=== PATIENT | male | born 1980 | race Caucasian/White ===

== ENCOUNTER 2016-10-19 15:30 | Inpatient (IN) ==
--- NOTE | 2016-10-19 15:49 | Emergency Department Note ---
Disposition Clinical Impression: Acute psychosis Disposition: Still a Patient Condition: Fair Referrals: NONE,PCP [Primary Care Provider] - Forms: ED Satisfaction Letter Psych HPI - General Chief Complaint: ED Psychiatric Symptoms Stated Complaint: mental eval Time Seen by Provider: 10/19/16 15:43 Source: patient, EMS Mode of arrival: ambulatory Limitations: no limitations Nursing Notes Reviewed: Yes Vital Signs Reviewed: Yes - History of Present Illness HPI Narrative: 35-year-old male complaining of agitation hallucinations, patient was agitated at his sister's house, she called the police because she was concerned that he was hallucinating, he stated that he was seing numbers and patterns that were customer solutions representative of his personal information code like 1's and repeated information on his phone and that someone had typed a bizarre phrase "nananana" and this phrase deleted everything on his phone. He denies suicidal or homicidal ideation. He states that he has used methamphetamines in the last couple of days, he has been abstinent from heroin for several months, also smokes occasional marijuana. 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 Duration: intermittent History of similar episodes: Yes Improves with: none Worsens with: none Context: recent drug abuse (Meth 3 days ago) Alleged intoxication: Yes Associated symptoms: Denies: confusion, headache, nausea, vomiting - Related Data Previous Rx's Medication Instructions Recorded Nystatin SUSP [Mycostatin 5 ml PO QID 7 Days 06/07/15 Suspension] predniSONE [Prednisone] 40 mg PO DAILY #10 tablet 07/14/15 Naproxen [Naprosyn] 500 mg PO BID PRN #20 tablet 09/13/16 Allergies Allergy/AdvReac Type Severity Reaction Status Date / Time No Known Allergies Allergy Verified 09/13/16 13:49 All systems ED: reviewed and negative except as stated. Review of Systems: As Per HPI Constitutional: Denies: fever, chills Eyes: Denies: eye pain ENT ED: Denies: ear pain Cardiovascular: Denies: chest pain Respiratory: Denies: hemoptysis Gastrointestinal: Denies: hematemesis Neurological: Denies: headache Psychiatric: Reports: as per HPI, visual hallucinations. Denies: suicidal thoughts, homicidal thoughts Past Medical History - Past Medical History Attestation: Yes The following information was validated with the patient. Source: patient Medical history: Reports: other Surgical history: Reports: herniorrhaphy Psychiatric history: Reports: no psych history - Social History Smoking Status: Current every day smoker Smokeless Tobacco Status: No Alcohol use: Reports: none Drug use: Reports: opiates, marijuana, IV Drug Use, other Physical Exam Constitutional: appears agitated is talking frantically, vital signs reviewed and wnl Eyes: PERRLA, sclera anicteric Neck: normal inspection, neck is supple Resp: CTA bilaterally, no resp distress CV: RRR, no m/g/r GI: normal inspection, soft, no guarding or rigidity Back: normal inspection, no tenderness to palpation Neuro: A&O3, CNII-XII grossly intact, GREWAL Psych: + visual hallucinations, tangential speech, pressured speech, denies SI or HI. MSK: no gross deformities, normal ROM UE and LE Skin: on limited exam, skin intact with no rashes or lesions - General Limitations: altered mental status General appearance: alert, anxious Course Course Narrative: Given agitation, pressured tangential speech, he seems borderline psychotic features, with possible visual hallucinations that he when he get a one A consultation, after medical clearance with lab work, I suspect methamphetamine use as well. - Reevaluation(s) Reevaluation #1: The sister did call, she states that the patient has had bipolar disorder which has been untreated, since his early 20s, he had threatened to kill his brother and his [id number] recently. Vital Signs Temperature 97 F L 10/19/16 15:33 Pulse Rate 74 10/19/16 15:33 Respiratory Rate 16 10/19/16 15:33 Blood Pressure 139/104 10/19/16 15:33 O2 Sat by Pulse Oximetry 96 10/19/16 15:33 Temperature 97 F L 10/19/16 15:33 Pulse Rate 74 10/19/16 21:37 Respiratory Rate 16 10/19/16 21:37 Blood Pressure 129/77 10/19/16 21:37 O2 Sat by Pulse Oximetry 100 10/19/16 21:37 Oxygen Delivery Oxygen Delivery Room Air Psych - Lab Data Result diagrams: 10/19/16 15:59 10/19/16 15:59 Lab Results 10/19/16 10/19/16 10/19/16 Range/Units 15:59 15:59 16:30 WBC 7.4 (4.3-11.1) K/mcL RBC 5.30 (4.19-5.50) M/mcL Hgb 15.1 (12.9-16.9) g/dL Hct 47.3 (37.5-50.1) % MCV 89.2 (83.0-100.0) fL MCH 28.5 (28.0-33.3) pg MCHC 31.9 (31.6-35.5) g/dL RDW 13.5 (11.5-14.5) % Plt Count 229 (140-400) K/mcL MPV 10.5 (9.4-12.4) fL Immature Gran % 0.3 (0-4) % Seg Neutrophils % 47.6 % Lymphocytes % 36.6 % Monocytes % 12.6 % Eosinophils % 2.4 % Basophils % 0.5 % Neutrophils # 3.5 (1.6-8.9) K/mcL Lymphocytes # 2.7 (0.6-4.6) K/mcL Monocytes # 0.9 (0.0-1.3) K/mcL Eosinophils # 0.2 (0.0-0.6) K/mcL Basophils # 0.0 (0.0-0.2) K/mcL Sodium 139 (136-145) mEq/L Potassium 4.4 (3.5-4.5) mEq/L Chloride 106 (98-109) mEq/L Carbon Dioxide 27 (19-29) mEq/L BUN 26 (8-26) mg/dL Creatinine 1.06 (0.72-1.25) mg/dL Est GFR ( Amer) > 60 (> 60) Est GFR (Non-Af Amer) > 60 (> 60) BUN/Creatinine Ratio 25 (6-26) Glucose 78 (70-99) mg/dL Calculated Osmolality 292 (280-300) Calcium 9.6 (8.6-10.8) mg/dL Urine Color (Yellow) Urine Clarity (Clear) Urine pH (5.0-8.0) pH Units Ur Specific [place] (1.010-1.025) Urine Protein (Neg-Trace) mg/dL Urine Glucose (UA) (Normal) mg/dL Urine Ketones (Negative) mg/dL Urine Blood (Negative) Urine Nitrite (Negative) Urine Bilirubin (Negative) Urine Urobilinogen (Normal) mg/dL Ur Leukocyte Esterase (Negative) Urine Microscopic RBC (0-3) per hpf Urine Microscopic WBC (0-3) per hpf Ur Squamous Epith Cells (None-Few) per lpf Urine Bacteria (None-Few) per hpf Hyaline Casts (None-Few) per lpf Salicylates < 5.0 L (15-30) mg/dL Urine Opiates Screen Negative (Csejfj=222) ng/mL Acetaminophen < 1.0 L (10-30) mcg/mL Ur Barbiturates Screen Negative (Oeoesi=985) ng/mL Ur Phencyclidine Scrn Negative (Cutoff=25) ng/mL Ur Amphetamines Screen Positive H (Ollkcy=1940) ng/mL U Benzodiazepines Scrn Negative (Nqphwr=073) ng/mL Urine Cocaine Screen Negative (Cutoff= 300) ng/mL U Marijuana (THC) Screen Positive H (Cutoff = 50) ng/mL Ethyl Alcohol < 10 (0-10) mg/dL 10/19/16 Range/Units 16:33 WBC (4.3-11.1) K/mcL RBC (4.19-5.50) M/mcL Hgb (12.9-16.9) g/dL Hct (37.5-50.1) % MCV (83.0-100.0) fL MCH (28.0-33.3) pg MCHC (31.6-35.5) g/dL RDW (11.5-14.5) % Plt Count (140-400) K/mcL MPV (9.4-12.4) fL Immature Gran % (0-4) % Seg Neutrophils % % Lymphocytes % % Monocytes % % Eosinophils % % Basophils % % Neutrophils # (1.6-8.9) K/mcL Lymphocytes # (0.6-4.6) K/mcL Monocytes # (0.0-1.3) K/mcL Eosinophils # (0.0-0.6) K/mcL Basophils # (0.0-0.2) K/mcL Sodium (136-145) mEq/L Potassium (3.5-4.5) mEq/L Chloride (98-109) mEq/L Carbon Dioxide (19-29) mEq/L BUN (8-26) mg/dL Creatinine (0.72-1.25) mg/dL Est GFR ( Amer) (> 60) Est GFR (Non-Af Amer) (> 60) BUN/Creatinine Ratio (6-26) Glucose (70-99) mg/dL Calculated Osmolality (280-300) Calcium (8.6-10.8) mg/dL Urine Color Yellow (Yellow) Urine Clarity Clear (Clear) Urine pH 6.0 (5.0-8.0) pH Units Ur Specific [place] > 1.030 H (1.010-1.025) Urine Protein 30 H (Neg-Trace) mg/dL Urine Glucose (UA) Normal (Normal) mg/dL Urine Ketones Negative (Negative) mg/dL Urine Blood Negative (Negative) Urine Nitrite Negative (Negative) Urine Bilirubin Negative (Negative) Urine Urobilinogen Normal (Normal) mg/dL Ur Leukocyte Esterase Negative (Negative) Urine Microscopic RBC 3-5 H (0-3) per hpf Urine Microscopic WBC 3-5 H (0-3) per hpf Ur Squamous Epith Cells Moderate H (None-Few) per lpf Urine Bacteria None Seen (None-Few) per hpf Hyaline Casts None Seen (None-Few) per lpf Salicylates (15-30) mg/dL Urine Opiates Screen (Yfsqsh=480) ng/mL Acetaminophen (10-30) mcg/mL Ur Barbiturates Screen (Axcmdr=574) ng/mL Ur Phencyclidine Scrn (Cutoff=25) ng/mL Ur Amphetamines Screen (Dzserx=5581) ng/mL U Benzodiazepines Scrn (Xmjfij=429) ng/mL Urine Cocaine Screen (Cutoff= 300) ng/mL U Marijuana (THC) Screen (Cutoff = 50) ng/mL Ethyl Alcohol (0-10) mg/dL Psychiatric Medical Clearance - Medical Clearance Checklist Does the patient have a NEW psychiatric condition?: No Any abnormalities indicating possible medical illness?: No Any history of medical issues?: No Medical History: No Social History Section defined Any abnormal vital signs prior to transfer?: No Current Vitals: Last Vital Signs Temp 97 F L 10/19/16 15:33 Pulse 74 10/19/16 21:37 Resp 16 10/19/16 21:37 BP 129/77 10/19/16 21:37 Pulse Ox 100 10/19/16 21:37 Is the patient intoxicated or cognitively impaired?: No Psychiatric Lab Panel: Drug Levels and Toxicity 10/19/16 10/19/16 15:59 16:30 Urine Opiates Screen Negative Acetaminophen < 1.0 L Ur Barbiturates Screen Negative Ur Phencyclidine Scrn Negative Ur Amphetamines Screen Positive H U Benzodiazepines Scrn Negative Urine Cocaine Screen Negative U Marijuana (THC) Screen Positive H Ethyl Alcohol < 10 Any abnormalities on the physical exam?: Yes (+Meth) Any abnormal labs?: No Abnormal Labs: Abnormal lab results Ur Specific [place] > 1.030 (1.010-1.025) H 10/19/16 16:33 Urine Protein 30 mg/dL (Neg-Trace) H 10/19/16 16:33 Urine Microscopic RBC 3-5 per hpf (0-3) H 10/19/16 16:33 Urine Microscopic WBC 3-5 per hpf (0-3) H 10/19/16 16:33 Ur Squamous Epith Cells Moderate per lpf (None-Few) H 10/19/16 16:33 Salicylates < 5.0 mg/dL (15-30) L 10/19/16 15:59 Acetaminophen < 1.0 mcg/mL (10-30) L 10/19/16 15:59 Ur Amphetamines Screen Positive ng/mL (Qboebz=4732) H 10/19/16 16:30 U Marijuana (THC) Screen Positive ng/mL (Cutoff = 50) H 10/19/16 16:30 Does the patient require durable medical equiptment?: No Is the patient ambulatory?: Yes Is the patient a fall risk?: No Has the patient been medically cleared?: Yes Any acute medical condition require Tx prior to transfer?: No Statement of Medical Clearance: I have evaluated the patient, reviewed diagnostic information, and certify that the patient's medical condition is sufficiently stable that transfer to the psychiatric unit does not pose a significant risk of deterioration. S.B.A.R. - S.B.A.R. Transition of Care: Pending 1 A placement, Patient pink slipped due to threat of harming others. Situation: Demographics, MOA Background: Presenting Complaint, Relevant PMH, Meds, & Allergies Assessment: Vital Signs, Course and respsone to treatment, Exam Concerns, Patient/Family Expectation, Pertinant Lab Results, Outstanding Labs Recommendation: Barrier(s) to disposition, Recommendation based on pending studies, treatments, or consults S.B.A.R. Report Given to: Cipriano Bryant Time: 22:28 Attestation Statement - Attestation Attestation: I, Bjorn Brower, examined this patient and my medical decision-making was reviewed with the BROADLOOM WEAVER/PA/Advanced Practice Nurse/Resident Physician. I agree with the documented findings, disposition and treatment plan as described except to the extent set forth below. 35-year-old male presents to emergency department for mental evaluation. Patient states that he was sent to the emergency department by his family due to increased agitation and anxiety regarding somebody possibly packing into his phone. Patient apparently also made aggressive threats towards his brother and [id number]. Denies chest pain, shortness of breath, headache, nausea, vomiting, diarrhea. He denies ingestion of illicit drugs or medications prior to evaluation in the emergency department. He denies suicidal ideation or homicidal ideation. Patient evaluated by behavioral health emergency department who felt he needed admission to a psychiatric facility for further care and evaluation of his likely acute psychosis. Patient will be signed out to the night physician pending further evaluation, disposition
[2016-10-19 16:05] LABS: Basophils % 0.5 %; Eosinophils # 0.2 K/mcL (0.0-0.6); Eosinophils % 2.4 %; Hematocrit 47.3 % (37.5-50.1); Hemoglobin 15.1 g/dL (12.9-16.9); Immature Granulocytes % 0.3 % (0-4); Lymphocytes # 2.7 K/mcL (0.6-4.6); Lymphocytes % 36.6 %; Mean Corpuscular HGB Conc 31.9 g/dL (31.6-35.5); Mean Corpuscular Hemoglobin 28.5 pg (28.0-33.3); Mean Corpuscular Volume 89.2 fL (83.0-100.0); Mean Platelet Volume 10.5 fL (9.4-12.4); Monocytes # 0.9 K/mcL (0.0-1.3); Monocytes % 12.6 %; Neutrophils # 3.5 K/mcL (1.6-8.9); Platelet Count 229 K/mcL (140-400); Red Cell Distribution Width 13.5 % (11.5-14.5); Segmented Neutrophils % 47.6 %
[2016-10-19 16:20] LABS: BUN/Creatinine Ratio 25 (6-26); Blood Urea Nitrogen 26 mg/dL (8-26); Calcium 9.6 mg/dL (8.6-10.8); Carbon Dioxide 27 mEq/L (19-29); Chloride 106 mEq/L (98-109); Glucose 78 mg/dL (70-99); Osmolality,Calculated 292 (280-300); Potassium 4.4 mEq/L (3.5-4.5); Sodium 139 mEq/L (136-145); eGFR For African Americans > 60 (> 60); eGFR For Non-African Americans > 60 (> 60)
[2016-10-19 16:25] LABS: Acetaminophen < 1.0 mcg/mL (10-30); Ethanol < 10 mg/dL (0-10); Salicylate < 5.0 mg/dL (15-30)
[2016-10-19 16:45] LABS: Bilirubin,Urine Negative (Negative); Blood,Urine Negative (Negative); Clarity,Urine Clear (Clear); Color,Urine Yellow (Yellow); Glucose,Urine (UA) Normal (Normal); Ketones,Urine Negative (Negative); Leukocyte Esterase,Urine Negative (Negative); Nitrite,Urine Negative (Negative); Protein,Urine 30 mg/dL (Neg-Trace); Specific Gravity,Urine > 1.030 (1.010-1.025); Urobilinogen,Urine Normal (Normal)
[2016-10-19 16:48] LABS: Bacteria,Urine None Seen per hpf (None-Few); Hyaline Casts,Urine None Seen per lpf (None-Few); Squamous Epithelial Cell,Urine Moderate per lpf (None-Few)
[2016-10-19 16:50] LABS: Amphetamine Screen,Urine Positive ng/mL (Cutoff=1000); Barbiturate Screen,Urine Negative ng/mL (Cutoff=200); Benzodiazepines Screen,Urine Negative ng/mL (Cutoff=200); Cannabinoid Screen,Urine Positive ng/mL (Cutoff = 50); Cocaine Screen,Urine Negative ng/mL (Cutoff= 300); Opiate Screen,Urine Negative ng/mL (Cutoff=300); Phencyclidine Screen,Urine Negative ng/mL (Cutoff=25)
[2016-10-19] MEDS ORDERED: Haloperidol Lactate 5 MG/ML VIAL IM ONE (19:29)
[2016-10-19] MEDS ORDERED: *HR* LORazepam 2 MG/ML VIAL IM ONE (19:29)
[2016-10-20] MEDS ORDERED: Haloperidol Lactate 5 MG/ML VIAL IM PRN (14:56)
[2016-10-20] MEDS ORDERED: *HR* LORazepam 2 MG/ML VIAL IM PRN (14:56)
[2016-10-20] MEDS ORDERED: Mag Hydrox/Al Hydrox/Simeth 30 ML UDC PO PRN (14:56)
[2016-10-20] MEDS ORDERED: MOM Conc 10 ML UD.LIQ PO PRN (14:56)
[2016-10-20] MEDS ORDERED: Ibuprofen 400 MG TABLET PO PRN (14:56)
[2016-10-20] MEDS ORDERED: *HR* LORazepam 1 MG TABLET PO PRN (14:56)
--- NOTE | 2016-10-21 12:26 | Psychiatry History & Physical ---
Date of Encounter: 10/21/16 Time of Encounter: 12:15 History of Present Illness Patient Stated Chief Complaint: i am tired and sleepy Medicare Admission Attestation: For traditional Medicare patients the provided hospital inpatient services are reasonable and necessary and in the case of services not specified as inpatient -only under 42 CFR 419.22 (n), that they are appropriately provided as inpatient services in accordance 42 CFR 412.3. For Critical Access Hospital the patient may reasonably be expected to be discharged or transferred to a hospital within 96 hours after admission to the Critical Access Hospital. Admitted From: Emergency Dept Plans for Post Hospital Care: Home History of Present Illness: Mr. Shaw is a 35 year old male bought to ER after her sister called police as he was agitated , psychotic and threatened his family. he has h/o substance use . He is evaluated today lives with Gf 2 children , his sister and her . States i am very tired and extremely sleepy. he denies any psych inpatient but has been to inpatient rehab. stayed for 3 months was several years ago does not remember when. he denies taking any medications, he has h/o abusing heroin , states no use for 1 yr now, started using meth a month or more ago , uses iv and 7 or more times in a month , 1/2 gram at a time, smokes marijuana off and on , denies alcohol or other drugs , he does smoke cig. He remembers that his sister called who thought its best i come and check out. pt feels someone hacking his computer and still is paranoid, he states i feel like schizophrenic type person , i feel like people watching me and like i am in movie in conspiracy type of deal. it all started 2 weeks ago. i feel like loosing my mind. he states feels depressed that he tried to make family understand and no one listened to me, normally i am not depressed, i was wrote off work sec. to drugs and had so much free time so using meth. more. he denies suicidal ideation and thoughts of hurting other. he has poor insight and judgement at present. Past Med Surg Social Fam HX - Past Medical History Medical history: no medical history - Past Surgical History Surgical History: herniorrhaphy - Social History Smoking Status: Current every day smoker Smokeless Tobacco Status: No Alcohol use: none Drug use: opiates, marijuana, IV Drug Use, other Occupational status: unemployed, previously employed Current living situation: Home, With Family Activity Level: Independent ambulation Recent Out of Country Travel Within the Last 8 Weeks: No Exposure or Possible Exposure to Illness During Travel: No - Family History Grandmother Hx Family Endocrine Disorder: Yes (DM) Medications & Allergies No Known Home Drugs 10/20/16 [History] Allergies No Known Allergies Allergy (Verified 10/20/16 13:25) Review of Systems Constitutional: Denies: fever, chills, weakness, weight change Eyes: Denies: eye pain, vision change Ears, Nose, Throat: Denies: ear pain, throat pain, dental pain, hearing loss, congestion Cardiovascular: Denies: chest pain, palpitations, dyspnea on exertion Respiratory: Denies: cough, dyspnea, wheezes Gastrointestinal: Denies: abdominal pain, nausea, vomiting, diarrhea, constipation Genitourinary male: Denies: urgency, dysuria, frequency, genital lesions Genitourinary female: Denies: urgency, dysuria, frequency, abnormal menses, dyspareunia Musculoskeletal: Denies: joint swelling, joint pain Integumentary: Denies: rash, lesions, pruritus Neurological: Denies: headache, weakness, numbness, memory loss Psychiatric: Reports: auditory hallucinations, difficulty concentrating, irritability Endocrine: Denies: fatigue, heat or cold intolerance Hematologic/Lymphatic: Denies: easy bruising, lymphadenopathy Allergic/Immunologic: Denies: urticaria, itchy eyes Mental Status Exam Patient orientation: Yes Person, Yes Time, Yes Place Level of alertness: Alert Patient appearance: Unkempt Behavior: anxious, distractible Psychomotor activity: Increased Eye contact: Minimal Contact Mood description: Anxious, Irritable Affect description: congruent with mood Speech pattern: Excessive Speech volume: Normal Thought process: Circumstantial Thought content: Yes Paranoid delusion Perceptual disturbances: Yes Auditory hallucinations Attention span: Unable to Focus, Unable to Sustain Attention Memory description: Recent Impaired Patient reliability: Questionable Historian Intelligence estimate: Average Judgment: Fair Insight: Minimal Exam - HEENT Head exam IM: Present: atraumatic, normal inspection Eye exam IM: Present: normal appearance ENT exam IM: Present: normal exam - Neurological Neurological exam IM: Present: alert, CN II-XII intact, normal gait - Skin Skin exam IM: Present: dry, warm Results - Vital Signs Vital signs: Temp Pulse Resp BP Pulse Ox 98.6 F 64 16 107/65 98 10/21/16 09:00 10/21/16 09:00 10/21/16 09:00 10/21/16 09:00 10/20/16 12:08 - Labs Labs: Laboratory Last Values WBC 7.4 K/mcL (4.3-11.1) 10/19/16 15:59 RBC 5.30 M/mcL (4.19-5.50) 10/19/16 15:59 Hgb 15.1 g/dL (12.9-16.9) 10/19/16 15:59 Hct 47.3 % (37.5-50.1) 10/19/16 15:59 MCV 89.2 fL (83.0-100.0) 10/19/16 15:59 MCH 28.5 pg (28.0-33.3) 10/19/16 15:59 MCHC 31.9 g/dL (31.6-35.5) 10/19/16 15:59 RDW 13.5 % (11.5-14.5) 10/19/16 15:59 Plt Count 229 K/mcL (140-400) 10/19/16 15:59 MPV 10.5 fL (9.4-12.4) 10/19/16 15:59 Immature Gran % 0.3 % (0-4) 10/19/16 15:59 Seg Neutrophils % 47.6 % 10/19/16 15:59 Lymphocytes % 36.6 % 10/19/16 15:59 Monocytes % 12.6 % 10/19/16 15:59 Eosinophils % 2.4 % 10/19/16 15:59 Basophils % 0.5 % 10/19/16 15:59 Neutrophils # 3.5 K/mcL (1.6-8.9) 10/19/16 15:59 Lymphocytes # 2.7 K/mcL (0.6-4.6) 10/19/16 15:59 Monocytes # 0.9 K/mcL (0.0-1.3) 10/19/16 15:59 Eosinophils # 0.2 K/mcL (0.0-0.6) 10/19/16 15:59 Basophils # 0.0 K/mcL (0.0-0.2) 10/19/16 15:59 Sodium 139 mEq/L (136-145) 10/19/16 15:59 Potassium 4.4 mEq/L (3.5-4.5) 10/19/16 15:59 Chloride 106 mEq/L (98-109) 10/19/16 15:59 Carbon Dioxide 27 mEq/L (19-29) 10/19/16 15:59 BUN 26 mg/dL (8-26) 10/19/16 15:59 Creatinine 1.06 mg/dL (0.72-1.25) 10/19/16 15:59 Est GFR ( Amer) > 60 (> 60) 10/19/16 15:59 Est GFR (Non-Af Amer) > 60 (> 60) 10/19/16 15:59 BUN/Creatinine Ratio 25 (6-26) 10/19/16 15:59 Glucose 78 mg/dL (70-99) 10/19/16 15:59 Calculated Osmolality 292 (280-300) 10/19/16 15:59 Calcium 9.6 mg/dL (8.6-10.8) 10/19/16 15:59 Urine Color Yellow (Yellow) 10/19/16 16:33 Urine Clarity Clear (Clear) 10/19/16 16:33 Urine pH 6.0 pH Units (5.0-8.0) 10/19/16 16:33 Ur Specific [place] > 1.030 (1.010-1.025) H 10/19/16 16:33 Urine Protein 30 mg/dL (Neg-Trace) H 10/19/16 16:33 Urine Glucose (UA) Normal mg/dL (Normal) 10/19/16 16:33 Urine Ketones Negative mg/dL (Negative) 10/19/16 16:33 Urine Blood Negative (Negative) 10/19/16 16:33 Urine Nitrite Negative (Negative) 10/19/16 16:33 Urine Bilirubin Negative (Negative) 10/19/16 16:33 Urine Urobilinogen Normal mg/dL (Normal) 10/19/16 16:33 Ur Leukocyte Esterase Negative (Negative) 10/19/16 16:33 Urine Microscopic RBC 3-5 per hpf (0-3) H 10/19/16 16:33 Urine Microscopic WBC 3-5 per hpf (0-3) H 10/19/16 16:33 Ur Squamous Epith Cells Moderate per lpf (None-Few) H 10/19/16 16:33 Urine Bacteria None Seen per hpf (None-Few) 10/19/16 16:33 Hyaline Casts None Seen per lpf (None-Few) 10/19/16 16:33 Salicylates < 5.0 mg/dL (15-30) L 10/19/16 15:59 Urine Opiates Screen Negative ng/mL (Dffcji=945) 10/19/16 16:30 Acetaminophen < 1.0 mcg/mL (10-30) L 10/19/16 15:59 Ur Barbiturates Screen Negative ng/mL (Xyeyri=422) 10/19/16 16:30 Ur Phencyclidine Scrn Negative ng/mL (Cutoff=25) 10/19/16 16:30 Ur Amphetamines Screen Positive ng/mL (Eesrbz=3123) H 10/19/16 16:30 U Benzodiazepines Scrn Negative ng/mL (Meaqqx=223) 10/19/16 16:30 Urine Cocaine Screen Negative ng/mL (Cutoff= 300) 10/19/16 16:30 U Marijuana (THC) Screen Positive ng/mL (Cutoff = 50) H 10/19/16 16:30 Ethyl Alcohol < 10 mg/dL (0-10) 10/19/16 15:59 Assessment and Plan (1) Drug-induced psychotic disorder with delusions Current visit: Yes Status: Acute (2) Drug-induced mood disorder Current visit: Yes Status: Acute (3) Methamphetamine abuse Current visit: Yes Status: Acute Plan: Admit inpatient for safety and stabilization, Close observation, Suicide Precautions per unit protocol, Encourage participation in unit milieu, Group Therapy, Monitor sleep, Monitor appetite, Family/Supportive other meeting Risks, benefits, side effects, alternatives discussed w/pt: Yes Patient agreeable to treatment: Yes Plans for Post Hospital Care: Home
[2016-10-21] MEDS: traZODone 50 MG TABLET PO PRN (20:18)
[2016-10-21] MEDS: hydrOXYzine pamoate 25 MG CAPSULE PO PRN (20:18)
--- NOTE | 2016-10-22 12:29 | Psychiatry Progress Note ---
Date of Encounter: 10/22/16 Time of Encounter: 12:15 Subjective Interval history: Patient seen today , case d/w staff, states doing well slept good and compliant with medications. lives with his family and has support. feels tired and sleepy , denies any paranoia feels its much better. denies aud./visual duque. denies si/hi but is still restless and has not attended all groups, he is still somewhat preoccupied. continue observations. Review of Systems Psychiatric: Reports: anxiety, difficulty concentrating, irritability Objective: Exam Patient orientation: Yes Person, Yes Time, Yes Place Level of alertness: Sedated Patient appearance: Unkempt Behavior: cooperative Psychomotor activity: Slowed Eye contact: Minimal Contact Mood description: Anxious Affect description: constricted Speech pattern: Slowed Thought process: Slowed Thinking Thought content: Yes Preoccupation Judgment: Fair Insight: Partial Results - Vital Signs Vital Signs: Temp Pulse Resp BP Pulse Ox 97.6 F 90 16 114/81 98 10/22/16 09:00 10/22/16 09:00 10/22/16 09:00 10/22/16 09:00 10/20/16 12:08 Assessment and Plan (1) Drug-induced psychotic disorder with delusions Current visit: Yes Status: Acute (2) Drug-induced mood disorder Current visit: Yes Status: Acute (3) Methamphetamine abuse Current visit: Yes Status: Acute Risks, benefits, side effects, alternatives discussed w/pt: Yes Patient agreeable to treatment: Yes Consult Discharge Plan - Plan Referrals: NONE,PCP [Primary Care Provider] -
[2016-10-22] MEDS: traZODone 50 MG TABLET PO PRN (20:41)
[2016-10-22] MEDS: hydrOXYzine pamoate 25 MG CAPSULE PO PRN (20:41)
[2016-10-23 10:12] VITALS: BP 119/86
--- NOTE | 2016-10-23 11:01 | Discharge Summary ---
Date of Encounter: 10/23/16 Time of Encounter: 10:30 Diagnosis - Discharge Diagnosis (1) Drug-induced psychotic disorder with delusions Status: Acute (2) Drug-induced mood disorder Status: Acute (3) Methamphetamine abuse Status: Acute Medications - Discharge Medications Prescriptions: Benztropine [Cogentin] 0.5 mg PO BID #60 tab Citalopram [CeleXA] 10 mg PO DAILY #30 tab Haloperidol [Haldol] 0.5 mg PO BID #60 tab Benztropine [Cogentin] 0.5 mg PO BID #60 tab 10/23/16 [Rx] Citalopram [CeleXA] 10 mg PO DAILY #30 tab 10/23/16 [Rx] Haloperidol [Haldol] 0.5 mg PO BID #60 tab 10/23/16 [Rx] Allergies No Known Allergies Allergy (Verified 10/20/16 13:25) Provider Date of admission: 10/20/16 12:39 Primary care physician: PCP NONE Assessment and Plan - Patient/Caregiver Discharge Instructions Activity: resume usual activities as tolerated, return to work Diet: regular diet - Follow up Plan Follow up with: [facility] [Outside] - 11/04/16 9:00 am (The above appointment is with Dr. Hilario Osullivan for primary health care and medication management services. Please arrive 10 minutes early to complete the check-in process. You will receive a new patient packet in the mail. Please complete that packet and bring it with you to this appointment. If you are unable to complete your new patient packet, please arrive 30 minutes early to your first appointment to complete this packet in the office. Please also bring your insurance card (or [facility] award letter), photo ID, and all medications in their original bottles to this appointment. If you are unable to keep this appointment, 24 hour business notice of cancellation is expected. If you miss your new patient appointment, you cannot be re-scheduled in this practice. This is the first available appointment. You may contact the office regularly to check for cancellations that may allow you to be seen sooner. ) [facility] [Outside] (You will be called and given an appointment for outpatient psychiatric assessment and medication management services. Please arrive 15 minutes early to complete paperwork. Please bring your insurance card, photo ID and medications in their original bottles. If you do not have insurance, bring proof of income to apply for the sliding fee scale. If you are unable to keep this appointment, 24 hour business notice of cancellation is expected. This is the first available appointment. You may contact the office regularly to check for cancellations that may allow you to be seen sooner. ) [facility] [Outside] - 11/01/16 2:30 pm (The above appointment is with Lisa Santiago. When you come to your first appointment, you will be completing paperwork, meeting with a counselor, and developing a treatment plan. You will receive follow- up appointments for on-going services , which could include community support, mental health and substance abuse counseling, groups/partial hospitalization programming and medication assisted treatment. When you come to your first appointment, you will have an orientation to the agency and you will meet with a counselor. Please bring the following with you to your first visit to the clinic: 1) proof of household income (two consecutive pay stubs, social security award letter, bank statement , statement letter from [facility], child support statement, IRS 1040 or W2 form, or a statement from the person who financially supports you stating they help provide for your basic needs), 2) proof of residency (drivers license, a piece of mail showing your address, a statement from person you live with verifying you live at their address), 3) your social security card, 4) photo ID, 5) your insurance card (if you have commercial insurance you must call to obtain a prior authorization number before you arrive to your first appointment) and 6) if you do not have insurance but have applied for Medicaid, please bring verification you have applied. This is the first available appointment. You may contact the office regularly to check for cancellations that may allow you to be seen sooner. ) Functional capacity at discharge: independent ambulation Overall status at discharge: patient is back to baseline Disposition: Home, Self-Care Hospital Course Hospital course: Mr. Shaw is a 35 year old male who was admitted from ER after his sister called police as patient was paranoid and made threat to family. patient had been abusing meth. iv and became psychotic. he also expressed some anxiety and depression and states when he does not use he does not feel any depression , he responded to medications and denied side effects. he denies psychosis at present and sleep is better than ever as per him.he is not suicidal or danger to others at present. patient at baseline and has family support and will go back home to his family. Time spent discussing smoking cessation with patient: 3 to 10 minutes Does patient wish to continue nicotine replacement upon disc: No - Time Spent with Patient Total time spent providing and/or coordinating discharge services: Less than 30 minutes Quality - Multiple Antipsychotics Patient discharged on 2 or more antipsychotic medications: No Procedures - Procedures Procedures: Medication Management, Crisis Stabilization, Supportive Therapy, Group Therapy, Psychoeducational Therapy Mental Status Exam - Mental Status Exam Patient orientation: Yes Person, Yes Time, Yes Place Level of alertness: Alert Patient appearance: Appropriate Behavior: calm, cooperative Psychomotor activity: Normal Eye contact: Maintains Eye Contact Mood description: Euthymic/stable Affect description: congruent with mood Speech pattern: Normal rate, Normal rhythm, Normal tone Speech Volume: Normal Thought process: Intact Thought Content: Yes Intact Judgment: Good Insight: Partial
== END 2016-10-23 13:30 | disposition home or self-care (01) | DRG 776 ==
LOC: EMEROO 15:30 → 1ANU 10-20 12:39
PROVIDERS: ADMIT Psychiatry & Neurology Psychiatry; ATTEND Psychiatry & Neurology Psychiatry